=== PATIENT | female | born 1965 | race Caucasian/White ===

== ENCOUNTER 2020-03-18 12:00 | Inpatient (IN) | payer MEDICAID ==
[~2020-03-18] VITALS: Ht 172.7 cm; Wt 81.4 kg
[2020-03-18] MEDS ORDERED: POLYETHYLENE GLYCOL 17 GM PACKET PO PRN (13:30)
[2020-03-18] MEDS ORDERED: BISACODYL 10 MG SUPP PR PRN (13:30)
[2020-03-18] MEDS ORDERED: ACETAMINOPHEN 325 MG TABLET PO PRN (13:30)
[2020-03-18] MEDS ORDERED: ONDANSETRON ODT 4 MG PO PRN (13:30)
[2020-03-18] MEDS ORDERED: PLEASE ENTER HEIGHT AND WEIGHT MC SCH (15:00)
[2020-03-18 16:07] VITALS: BP 124/69
[2020-03-18 16:20] LABS: BASOPHILS % (AUTO) 1 % (0-1); EOSINOPHILS % (AUTO) 1 % (1-7); LYMPHOCYTES % (AUTO) 38 % (22-44); MEAN CORPUSCULAR HEMOGLOBIN 31.6 pg (27.0-34.8); MEAN CORPUSCULAR HGB CONC 33.8 g/dL (32.4-35.8); MEAN PLATELET VOLUME 8.6 fL (7.4-10.4); MONOCYTES % (AUTO) 7 % (2-9); NEUTROPHILS % (AUTO) 54 % (42-75); PLATELET COUNT 244 x10^3/uL (130-400); RED BLOOD COUNT 4.44 x10^6/uL (3.82-5.3); RED CELL DISTRIBUTION WIDTH 14.6 % (9.6-15.2)
[2020-03-18 16:22] LABS: ALANINE AMINOTRANSFERASE 24 U/L (12-78); ALBUMIN 3.8 g/dL (3.4-5.0); ANION GAP 6 mmol/L (5-15); CHLORIDE 111 mmol/L (98-107); CREATININE 0.95 mg/dL (0.55-1.02)
[2020-03-18 16:23] LABS: MD NO
[2020-03-18 16:27] LABS: ALKALINE PHOSPHATASE 58 U/L (45-117); BILIRUBIN,TOTAL 0.3 mg/dL (0.2-1.0); FREE T4 (FREE THYROXINE) 0.83 ng/dL (0.76-1.46)
[2020-03-18] MEDS ORDERED: PRAZOSIN 2 MG CAPSULE PO PRN (17:00)
[2020-03-18] MEDS ORDERED: HYDROXYZINE PAMOATE 50MG CAP PO PRN (17:00)
[2020-03-18] MEDS: OXYcodone/APAP 5/325MG TABLET PO PRN (19:33)
[2020-03-18 19:35] VITALS: BP 106/71
[2020-03-18] MEDS: BUSPIRONE 5 MG TABLET PO SCH (20:16)
[2020-03-18] MEDS: GABAPENTIN 300 MG CAPSULE PO SCH (20:17)
[2020-03-18] MEDS: DOCUSATE 100 MG CAPSULE PO PRN (20:17)
[2020-03-18] MEDS: BACLOFEN 10 MG TABLET PO SCH (20:17)
[2020-03-18] MEDS: LAMOTRIGINE 25 MG TABLET PO SCH (20:20)
[2020-03-19] MEDS: OXYcodone/APAP 5/325MG TABLET PO PRN ×4 (03:04→22:38)
[2020-03-19 06:47] LABS: CHOL/HDL RATIO 4.5; LDL/HDL RATIO 3.1 (0.5-3.0)
[2020-03-19 07:51] VITALS: BP 112/70
[2020-03-19] MEDS: NICOTINE 14MG/24 HR PATCH.TD24 TD SCH (09:36)
[2020-03-19] MEDS: BACLOFEN 10 MG TABLET PO SCH ×3 (09:36→20:15)
[2020-03-19] MEDS: LAMOTRIGINE 25 MG TABLET PO SCH ×2 (09:36→20:15)
[2020-03-19] MEDS: BUSPIRONE 5 MG TABLET PO SCH ×3 (09:37→20:15)
[2020-03-19] MEDS: GABAPENTIN 300 MG CAPSULE PO SCH ×3 (09:37→20:15)
[2020-03-19] MEDS: CARIPRAZINE 3 MG CAP PO SCH (09:42)
[2020-03-19 10:17] LABS: MICROSCOPIC NOT IND
[2020-03-19 19:55] VITALS: BP 117/77
[2020-03-20] MEDS: OXYcodone/APAP 5/325MG TABLET PO PRN ×4 (04:44→19:56)
[2020-03-20 07:00] VITALS: BP 123/75
[2020-03-20] MEDS: GABAPENTIN 300 MG CAPSULE PO SCH ×4 (07:40→21:08)
[2020-03-20] MEDS: BACLOFEN 10 MG TABLET PO SCH ×3 (07:40→21:08)
[2020-03-20] MEDS: LAMOTRIGINE 25 MG TABLET PO SCH ×2 (07:40→21:08)
[2020-03-20] MEDS: BUSPIRONE 5 MG TABLET PO SCH ×3 (07:40→21:08)
[2020-03-20] MEDS: CARIPRAZINE 3 MG CAP PO SCH (08:03)
[2020-03-20] MEDS: NICOTINE 14MG/24 HR PATCH.TD24 TD SCH (08:03)
[2020-03-20 20:00] VITALS: BP 112/71
[2020-03-20] MEDS: AMITRIPTYLINE 75 MG TABLET PO SCH (21:08)
[2020-03-21] MEDS: OXYcodone/APAP 5/325MG TABLET PO PRN ×4 (04:48→19:22)
[2020-03-21] MEDS: GABAPENTIN 300 MG CAPSULE PO SCH ×4 (06:02→20:04)
[2020-03-21 07:26] VITALS: BP_SYST 107; BP_SYST 116; BP_DIAS 70; BP_DIAS 74
[2020-03-21] MEDS: CARIPRAZINE 3 MG CAP PO SCH (09:00)
[2020-03-21] MEDS: NICOTINE 14MG/24 HR PATCH.TD24 TD SCH (09:00)
[2020-03-21] MEDS: LAMOTRIGINE 25 MG TABLET PO SCH ×2 (09:25→20:04)
[2020-03-21] MEDS: BACLOFEN 10 MG TABLET PO SCH ×3 (09:25→20:04)
[2020-03-21] MEDS: DOCUSATE 100 MG CAPSULE PO PRN (09:25)
[2020-03-21] MEDS: BUSPIRONE 5 MG TABLET PO SCH ×3 (09:25→20:04)
[2020-03-21] MEDS ORDERED: GABA300C PO (15:31)
[2020-03-21] MEDS ORDERED: PRAZ2CAP2 PO ×2 (15:31→17:22)
[2020-03-21] MEDS ORDERED: HYDR50TA99 PO (15:31)
[2020-03-21] MEDS ORDERED: BUSP5TAB2 PO ×2 (15:31→17:22)
[2020-03-21] MEDS ORDERED: BACL-19 PO (15:31)
[2020-03-21] MEDS ORDERED: LAMO25TA PO (15:31)
[2020-03-21] MEDS ORDERED: OXYC-302 PO (15:31)
[2020-03-21] MEDS ORDERED: CARI3CAP PO ×2 (15:31→17:22)
[2020-03-21] MEDS ORDERED: HYDR50CA2 PO (17:22)
[2020-03-21] MEDS ORDERED: AMIT75TA PO (17:22)
[2020-03-21] MEDS ORDERED: LAMO25TA9 PO (17:22)
[2020-03-21] MEDS ORDERED: NICO-486 TD (17:22)
[2020-03-21 19:20] VITALS: BP 108/73
[2020-03-21] MEDS: AMITRIPTYLINE 75 MG TABLET PO SCH (20:36)
[2020-03-22] MEDS: OXYcodone/APAP 5/325MG TABLET PO PRN ×2 (04:58→09:04)
[2020-03-22] MEDS: GABAPENTIN 300 MG CAPSULE PO SCH ×2 (05:00→10:59)
[2020-03-22 07:25] VITALS: BP 108/72
[2020-03-22] MEDS: LAMOTRIGINE 25 MG TABLET PO SCH (08:19)
[2020-03-22] MEDS: BUSPIRONE 5 MG TABLET PO SCH (08:19)
[2020-03-22] MEDS: BACLOFEN 10 MG TABLET PO SCH (08:19)
[2020-03-22] MEDS: CARIPRAZINE 3 MG CAP PO SCH (08:23)
[2020-03-22] MEDS: NICOTINE 14MG/24 HR PATCH.TD24 TD SCH (08:24)
[2020-03-22] MEDS ORDERED: FLU VACC QS2020-21(6MOS UP)/PF 60MCG/0.5 ML SYR IM-VACC ONE (08:30)
== END 2020-03-22 13:15 | disposition home or self-care (01) | DRG 753 ==
LOC: 3E 14:43
PROVIDERS: ADMIT Psychiatry & Neurology Psychosomatic Medicine; ATTEND Psychiatry & Neurology Psychosomatic Medicine
DX: F31.30 Bipolar disorder, current episode depressed, mild or moderate severity, unspecified (principal); F41.1 Generalized anxiety disorder; F17.200 Nicotine dependence, unspecified, uncomplicated; G89.29 Other chronic pain; G47.00 Insomnia, unspecified; F43.10 Post-traumatic stress disorder, unspecified; Z91.5 Personal history of self-harm; Z79.899 Other long term (current) drug therapy; Z88.6 Allergy status to analgesic agent
CPT/HCPCS: 36415; 71045; 80053; 80061; 81003; 84439; 84443; 84702; 84703; 85025; 90686; 93005